=== PATIENT | male | born 1985 | race Caucasian/White ===

== ENCOUNTER 2022-08-08 15:08 | Emergency (ER) | payer BC, SELFPAY ==
[2022-08-08 15:11] VITALS: BP 123/73; PULSE 83; RESP 16; TEMP 36.6; O2SAT 99; BMI 33.5
--- NOTE | 2022-08-08 15:24 | EDS_ITS ---
HPI History of Present Illness Chief Complaint: Bite Narrative Narrative: Patient presents after bat exposure. Patient is actually moving to [place] and leaving [facility]. Last evening he was carrying things in and out from his house. He was walking from the car back into his house. He saw something fly in front of him that he thought was a moth. He duct and then he continued onto the house. He had no idea that this had attached itself to him. He went into the house. He sat down he was eating dinner. Shortly into dinner he noticed something crawling across his left thigh. He looked down and saw the bat. He states he jumped up and it went off of his leg. But it had been on him for a while. He states it just did not look real healthy. He feels fine. He does not know of any bite francisco j or any sore area. He has not been immunized against rabies. He is told he likely should have immunization. He is overall healthy. He basically has no physical complaints. He takes medicine for ADHD and occasionally for migraines. [facility] Medical History (Updated 08/08/22 @ 15:[address] Buzz Douglas MD) ADHD Migraine Allergy/AdvReac Type Severity Reaction Status Date / Time No Known Allergies Allergy Verified 08/08/22 15:10 ROS ROS ED Constitutional Constitutional ED: Denies fever(s) Eyes Eyes: Denies change in vision Respiratory/Chest Respiratory/Chest: Denies cough Gastrointestinal Gastrointestinal: Denies nausea or vomiting Musculoskeletal Musculoskeletal: Denies back pain, myalgias or neck pain Integumentary Reports other Details: No known bite francisco j. ; Denies abscess, Abrasions or rash Neurologic Neurologic: Denies paresthesias or weakness Hematologic/Lymphatic Hematologic/Lymphatic: Denies easy bleeding, easy bruising or lymphadenopathy Allergic/Immunologic Allergic/Immunologic ED: Denies urticaria EXAM Physical Exam Narrative Exam Narrative: Patient is awake alert sitting comfortably in the chair. No acute distress. HEENT shows moist mucous membranes no trauma Lungs are clear bilaterally. The heart is regular without murmur gallop or rub. Extremities show a couple little abrasions but they look older and they do not look like any bite yousif. I do not see anything that looks like a bite francisco j and he does not notice anything that seems like a bite to him. Skin shows no bites as above. There is no pallor. Const Vital Signs: 08/08/22 15:11 Temperature 98 F Temperature Source Temporal Pulse Rate 83 Respiratory Rate 16 Blood Pressure 123/73 H Blood Pressure Mean 89 Pulse Ox 99 Oxygen Delivery Method Room Air MDM MDM MDM Narrative Medical decision making narrative: Patient by history did have a bat on his person for an extended period of time. It is reasonable to give him rabies immunoglobulin and initiate the series. I explained that he should complete the series when he goes down to [place]. We will give him paperwork to show what he has received here. I do not think any blood work is needed on this patient who is overall healthy and asymptomatic. I do not think any x-rays are needed as there is no sign of bite francisco j puncture or injury at all. Discharge Plan Triage Chief Complaint: Bite ED Provider: Buzz Douglas Dx/Rx/DC Orders Clinical Impression: Bat bite wound Instructions: Understanding Rabies Activity Restrictions/Additional Instructions: Follow up in [place] for remainder of the rabies series on days 3, 7, 14 after today Disposition Disposition: Home, Self Care
[2022-08-08] MEDS: Rabies Vaccine,Human Diploid 2.5 UNITS Vial IM (16:18)
[2022-08-08] MEDS: Rabies Immune Globulin/PF 300 UNIT/ML, 1 ML VIAL 330 UNIT IM (16:19)
[2022-08-08] MEDS: Rabies Immune Globulin/PF 300 UNIT/ML, 5 ML VIAL 1500 UNIT IM (16:19)
--- NOTE | 2022-08-08 16:56 | ED.RN ---
No reaction to rabies shot.
[2022-08-08 16:57] VITALS: BP 126/70; PULSE 68; RESP 18; TEMP -17.7; TEMP 0; O2SAT 98
== END 2022-08-08 17:03 | disposition home or self-care (01) ==
PROVIDERS: Emergency Provider Emergency Medicine; PCP Internal Medicine; Visit Provider Emergency Medicine
DX: S70.372A Other superficial bite of left thigh, initial encounter (principal); Z23 Encounter for immunization; F90.9 Attention-deficit hyperactivity disorder, unspecified type; Z79.899 Other long term (current) drug therapy; W55.81XA Bitten by other mammals, initial encounter; Y93.89 Activity, other specified; Y92.018 Other place in single-family (private) house as the place of occurrence of the external cause
CPT/HCPCS: 90675; 99282; 90375